=== PATIENT | male | born 1940 | race Caucasian/White ===

== ENCOUNTER → 2016-07-01 | Outpatient (CLI) | payer MEDICARE, OTHER ==
[~2016-07-01] VITALS: Ht 175.3 cm; Wt 128.8 kg
[~2016-07-01] MED LIST: ALBUTEROL0.63 MG/3 INH; ASPIRIN EC81 MG PO; BREO ELLIPTA 11 EACH INH; CALCITRIOL0.5 MCG PO; CATAPRES 0.1MG0.1 MG PO; CITALOPRAM HBR40 MG PO; CLINDAMYCIN HC300 MG PO; COREG 25MG TAB25 MG PO; COSOPT OPTH SOL10 ML OS; EPLERENONE25 MG PO; HYDRALAZINE HCL50 MG PO; LANTUS SOL100 UNIT/1 SQ; LASIX80 MG PO; LIPITOR TAB 2020 MG PO; MEDROL4 MG PO; NEURONTIN 300300 MG PO; NOVOLOG FL100 UNIT/1 SQ; OMNICEF 300 MG300 MG PO; PROTONIX40 MG PO; SYNTHROID 50 M50 MCG PO; TOUJEO SC; VENTOLIN HFA 66.7 GM INH; ZYLOPRIM 100 M100 MG PO
[2016-07-01 11:07] LABS: RED BLOOD COUNT 2.89 M/UL (4.20-5.50); WHITE BLOOD COUNT 8.7 K/UL (4.5-11.0)
== END ==
LOC: OPSV 10:00
PROVIDERS: Internal Medicine Nephrology
DX: N18.4 Chronic kidney disease, stage 4 (severe) (principal); N25.81 Secondary hyperparathyroidism of renal origin
CPT/HCPCS: 36415; 80048; 82728; 83540; 83550; 85027; 96365; 96366; J1756; J7050

== ENCOUNTER 2016-07-08 13:07 | Inpatient (IN) | payer MEDICARE, OTHER ==
[~2016-07-08] VITALS: Ht 175.3 cm; Wt 125.4 kg
[2016-07-08 17:05] LABS: HEMOGLOBIN 7.8 gm/dl (14.0-17.5); RED BLOOD COUNT 2.87 M/UL (4.20-5.50); WHITE BLOOD COUNT 9.2 K/UL (4.5-11.0)
[2016-07-08] MEDS ORDERED: ZYLOPRIM 100 M100 MG PO (18:42)
[2016-07-08] MEDS ORDERED: LIPITOR TAB 2020 MG PO (18:42)
[2016-07-08] MEDS ORDERED: CALCITRIOL0.5 MCG PO (18:43)
[2016-07-08] MEDS ORDERED: CITALOPRAM HBR40 MG PO (18:44)
[2016-07-08] MEDS ORDERED: COREG 25MG TAB25 MG PO (18:44)
[2016-07-08] MEDS ORDERED: CLINDAMYCIN HC300 MG PO (18:45)
[2016-07-08] MEDS ORDERED: CATAPRES 0.1MG0.1 MG PO (18:46)
[2016-07-08] MEDS ORDERED: EPLERENONE25 MG PO (18:46)
[2016-07-08] MEDS ORDERED: LASIX80 MG PO (18:46)
[2016-07-08] MEDS ORDERED: SYNTHROID 50 M50 MCG PO (18:47)
[2016-07-08] MEDS ORDERED: NOVOLOG FL100 UNIT/1 SQ (18:49)
[2016-07-08] MEDS ORDERED: PROTONIX40 MG PO (18:49)
[2016-07-08] MEDS ORDERED: NEURONTIN 300300 MG PO (18:49)
[2016-07-08] MEDS ORDERED: HYDRALAZINE HCL50 MG PO (18:50)
[2016-07-08] MEDS ORDERED: BREO ELLIPTA 11 EACH INH (18:51)
[2016-07-08] MEDS ORDERED: LANTUS SOL100 UNIT/1 SQ (18:53)
[2016-07-08] MEDS ORDERED: ALBUTEROL0.63 MG/3 INH (18:54)
[2016-07-08] MEDS ORDERED: ASPIRIN EC81 MG PO (18:54)
[2016-07-08] MEDS ORDERED: VENTOLIN HFA 66.7 GM INH (18:55)
[2016-07-09 04:26] LABS: HEMOGLOBIN 7.6 gm/dl (14.0-17.5); RED BLOOD COUNT 2.8 M/UL (4.20-5.50); WHITE BLOOD COUNT 7.9 K/UL (4.5-11.0)
[2016-07-09] MEDS ORDERED: TOUJEO SC (07:13)
[2016-07-09] MEDS ORDERED: COSOPT OPTH SOL10 ML OS (16:56)
[2016-07-10 04:53] LABS: HEMOGLOBIN 8.2 gm/dl (14.0-17.5); RED BLOOD COUNT 3.03 M/UL (4.20-5.50)
[2016-07-10] MEDS ORDERED: OMNICEF 300 MG300 MG PO (13:59)
[2016-07-10] MEDS ORDERED: MEDROL4 MG PO (14:01)
== END 2016-07-10 16:05 | disposition home or self-care (01) | DRG 291 ==
LOC: ER1 13:07 → PROG CARE 16:58 → ZEROF 16:58 → PROG CARE 20:23
PROVIDERS: Specialist/Technologist Athletic Trainer; ADMIT Internal Medicine
DX: I13.0 Hypertensive heart and chronic kidney disease with heart failure and stage 1 through stage 4 chronic kidney disease, or unspecified chronic kidney disease (principal); I50.43 Acute on chronic combined systolic (congestive) and diastolic (congestive) heart failure; N18.4 Chronic kidney disease, stage 4 (severe); L03.116 Cellulitis of left lower limb; L03.115 Cellulitis of right lower limb; J45.901 Unspecified asthma with (acute) exacerbation; N17.9 Acute kidney failure, unspecified; N25.81 Secondary hyperparathyroidism of renal origin; J20.9 Acute bronchitis, unspecified; D50.0 Iron deficiency anemia secondary to blood loss (chronic); E11.22 Type 2 diabetes mellitus with diabetic chronic kidney disease; D63.1 Anemia in chronic kidney disease; E11.319 Type 2 diabetes mellitus with unspecified diabetic retinopathy without macular edema; E11.21 Type 2 diabetes mellitus with diabetic nephropathy; E11.40 Type 2 diabetes mellitus with diabetic neuropathy, unspecified; B95.62 Methicillin resistant Staphylococcus aureus infection as the cause of diseases classified elsewhere; H54.62 Unqualified visual loss, left eye, normal vision right eye; Z86.14 Personal history of Methicillin resistant Staphylococcus aureus infection; Z79.4 Long term (current) use of insulin; Z88.0 Allergy status to penicillin; Z88.3 Allergy status to other anti-infective agents; Z88.5 Allergy status to narcotic agent; Z88.8 Allergy status to other drugs, medicaments and biological substances; Z79.82 Long term (current) use of aspirin; Z79.51 Long term (current) use of inhaled steroids; Z79.899 Other long term (current) drug therapy; R06.02 Shortness of breath; I83.93 Asymptomatic varicose veins of bilateral lower extremities
CPT/HCPCS: ECHO; 36415; 36600; 71010; 71020; 80048; 80053; 82272; 82550; 82553; 82728; 82803; 82962; 83540; 83550; 83605; 83874; 83880; 83970; 84484; 85025; 85027; 85610; 85730; 86850; 86900; 86901; 93005; 93306; 94640; 94664; 96374; 96375; 99285; J0696; J1650; J1756; J1940; J2930; J7050

== ENCOUNTER → 2016-07-15 | Outpatient (CLI) | payer MEDICARE, OTHER ==
[~2016-07-15] VITALS: Ht 175.3 cm; Wt 128.8 kg
[2016-07-15 11:47] LABS: HEMOGLOBIN 8.9 gm/dl (14.0-17.5); RED BLOOD COUNT 3.26 M/UL (4.20-5.50); WHITE BLOOD COUNT 12.3 K/UL (4.5-11.0)
== END ==
LOC: OPSV 10:51
PROVIDERS: Internal Medicine Nephrology
DX: N18.4 Chronic kidney disease, stage 4 (severe) (principal); D63.1 Anemia in chronic kidney disease; N25.81 Secondary hyperparathyroidism of renal origin; D64.9 Anemia, unspecified
CPT/HCPCS: 36415; 85027; 96365; 96366; J1756; J7050

== ENCOUNTER → 2016-07-22 | Outpatient (CLI) | payer MEDICARE, OTHER ==
[~2016-07-22] VITALS: Ht 175.3 cm; Wt 128.8 kg
[2016-07-22 11:34] LABS: RED BLOOD COUNT 3.18 M/UL (4.20-5.50); WHITE BLOOD COUNT 8.7 K/UL (4.5-11.0)
== END ==
LOC: OPSV 10:41
PROVIDERS: Internal Medicine Nephrology
DX: N18.4 Chronic kidney disease, stage 4 (severe) (principal); D63.1 Anemia in chronic kidney disease; N25.81 Secondary hyperparathyroidism of renal origin; I83.91 Asymptomatic varicose veins of right lower extremity; I83.92 Asymptomatic varicose veins of left lower extremity
CPT/HCPCS: 36415; 80048; 82728; 83540; 83550; 85027; 96372; J0885

== ENCOUNTER → 2016-07-29 | Outpatient (CLI) | payer MEDICARE, OTHER ==
[~2016-07-29] VITALS: Ht 175.3 cm; Wt 128.8 kg
[2016-07-29 11:36] LABS: HEMOGLOBIN 8.5 gm/dl (14.0-17.5); RED BLOOD COUNT 3.02 M/UL (4.20-5.50); WHITE BLOOD COUNT 6.1 K/UL (4.5-11.0)
== END ==
LOC: OPSV 10:40
PROVIDERS: Internal Medicine Nephrology
DX: N18.4 Chronic kidney disease, stage 4 (severe) (principal); N25.81 Secondary hyperparathyroidism of renal origin
CPT/HCPCS: 36415; 85027; 96372; J0885

== ENCOUNTER → 2016-08-05 | Outpatient (CLI) | payer MEDICARE, OTHER ==
[~2016-08-05] VITALS: Ht 175.3 cm; Wt 128.8 kg
[2016-08-05 11:52] LABS: HEMOGLOBIN 9.1 gm/dl (14.0-17.5); RED BLOOD COUNT 3.15 M/UL (4.20-5.50); WHITE BLOOD COUNT 6.9 K/UL (4.5-11.0)
== END ==
LOC: OPSV 10:40
PROVIDERS: Internal Medicine Nephrology
DX: N18.4 Chronic kidney disease, stage 4 (severe) (principal); N25.81 Secondary hyperparathyroidism of renal origin
CPT/HCPCS: 36415; 85027; Q4081

== ENCOUNTER → 2016-08-12 | Outpatient (CLI) | payer MEDICARE, OTHER ==
[~2016-08-12] VITALS: Ht 205.7 cm; Wt 128.8 kg
[2016-08-12 11:09] LABS: HEMOGLOBIN 8.1 gm/dl (14.0-17.5); RED BLOOD COUNT 2.96 M/UL (4.20-5.50); WHITE BLOOD COUNT 8.2 K/UL (4.5-11.0)
== END ==
LOC: OPSV 10:40
PROVIDERS: Internal Medicine Nephrology
DX: N18.4 Chronic kidney disease, stage 4 (severe) (principal); D63.1 Anemia in chronic kidney disease; N25.81 Secondary hyperparathyroidism of renal origin
CPT/HCPCS: 36415; 85027; 96372; J0885

== ENCOUNTER → 2016-08-19 | Outpatient (CLI) | payer MEDICARE, OTHER ==
[2016-08-19 11:23] LABS: RED BLOOD COUNT 2.98 M/UL (4.20-5.50); WHITE BLOOD COUNT 8.8 K/UL (4.5-11.0)
== END ==
LOC: OPSV 10:49
PROVIDERS: Internal Medicine Nephrology
DX: N18.4 Chronic kidney disease, stage 4 (severe) (principal); D50.9 Iron deficiency anemia, unspecified; I83.90 Asymptomatic varicose veins of unspecified lower extremity
CPT/HCPCS: 36415; 80048; 82728; 83540; 83550; 85027; 96365; 96366; J1756; J7030

== ENCOUNTER → 2016-08-26 | Outpatient (CLI) | payer MEDICARE, OTHER ==
[~2016-08-26] VITALS: Ht 175.3 cm; Wt 128.8 kg
== END ==
LOC: OPSV 10:35
DX: D50.9 Iron deficiency anemia, unspecified (principal)
CPT/HCPCS: 96365; 96366; J1756; J7030

== ENCOUNTER → 2016-09-02 | Outpatient (CLI) | payer MEDICARE, OTHER ==
[~2016-09-02] VITALS: Ht 175.3 cm; Wt 128.8 kg
[2016-09-02 11:11] LABS: HEMOGLOBIN 9.2 gm/dl (14.0-17.5); RED BLOOD COUNT 3.35 M/UL (4.20-5.50); WHITE BLOOD COUNT 8.4 K/UL (4.5-11.0)
== END ==
LOC: OPSV 10:38
PROVIDERS: Internal Medicine Nephrology
DX: N18.4 Chronic kidney disease, stage 4 (severe) (principal); D63.1 Anemia in chronic kidney disease
CPT/HCPCS: 36415; 85027; 96372; J0885

== ENCOUNTER → 2016-09-09 | Outpatient (CLI) | payer MEDICARE, OTHER ==
[2016-09-09 11:03] LABS: HEMOGLOBIN 9.4 gm/dl (14.0-17.5); RED BLOOD COUNT 3.48 M/UL (4.20-5.50); WHITE BLOOD COUNT 8.1 K/UL (4.5-11.0)
== END ==
LOC: OPSV 10:36
PROVIDERS: Internal Medicine Nephrology
DX: N18.4 Chronic kidney disease, stage 4 (severe) (principal); D63.1 Anemia in chronic kidney disease
CPT/HCPCS: 36415; 80048; 82728; 83540; 83550; 85027; 96365; 96366; J1756; J7050

== ENCOUNTER → 2016-09-16 | Outpatient (CLI) | payer MEDICARE, OTHER ==
[~2016-09-16] VITALS: Ht 175.3 cm; Wt 128.8 kg
[2016-09-16 11:15] LABS: HEMOGLOBIN 9.7 gm/dl (14.0-17.5); RED BLOOD COUNT 3.52 M/UL (4.20-5.50); WHITE BLOOD COUNT 8.6 K/UL (4.5-11.0)
== END ==
LOC: OPSV 10:48
PROVIDERS: Internal Medicine Nephrology
DX: N18.4 Chronic kidney disease, stage 4 (severe) (principal); D63.1 Anemia in chronic kidney disease
CPT/HCPCS: 36415; 85027; 96365; 96366; J1756; J7050

== ENCOUNTER → 2016-09-23 | Outpatient (CLI) | payer MEDICARE, OTHER ==
[~2016-09-23] VITALS: Ht 175.3 cm; Wt 58.5 kg
[2016-09-23 11:32] LABS: HEMOGLOBIN 9.8 gm/dl (14.0-17.5); RED BLOOD COUNT 3.57 M/UL (4.20-5.50); WHITE BLOOD COUNT 7.8 K/UL (4.5-11.0)
== END ==
LOC: OPSV 10:34
PROVIDERS: Internal Medicine Nephrology
DX: N18.4 Chronic kidney disease, stage 4 (severe) (principal); D63.1 Anemia in chronic kidney disease; I83.90 Asymptomatic varicose veins of unspecified lower extremity
CPT/HCPCS: 36415; 85027; 96372; G0463; J0885

== ENCOUNTER → 2016-09-30 | Outpatient (CLI) | payer MEDICARE, OTHER ==
[2016-09-30 11:34] LABS: HEMOGLOBIN 9.2 gm/dl (14.0-17.5); RED BLOOD COUNT 3.27 M/UL (4.20-5.50); WHITE BLOOD COUNT 9.4 K/UL (4.5-11.0)
== END ==
LOC: OPSV 10:48
PROVIDERS: Internal Medicine Nephrology
DX: N18.4 Chronic kidney disease, stage 4 (severe) (principal); D63.1 Anemia in chronic kidney disease; H40.52X0 Glaucoma secondary to other eye disorders, left eye, stage unspecified
CPT/HCPCS: 36415; 80048; 82728; 83540; 83550; 85027; 96372; J0885

== ENCOUNTER → 2016-10-05 | Outpatient (CLI) | payer MEDICARE, OTHER ==
[2016-10-05 09:01] LABS: HEMOGLOBIN 8.4 gm/dl (14.0-17.5); RED BLOOD COUNT 2.99 M/UL (4.20-5.50); WHITE BLOOD COUNT 8.1 K/UL (4.5-11.0)
== END ==
LOC: CT 08:18
PROVIDERS: Internal Medicine Nephrology
DX: N18.4 Chronic kidney disease, stage 4 (severe) (principal); D63.1 Anemia in chronic kidney disease; H05.89 Other disorders of orbit; E86.0 Dehydration
CPT/HCPCS: 36415; 70482; 85027; 96360; 96361; 96372; J0885; J7030; J7050; Q4081; Q9966

== ENCOUNTER → 2016-10-14 | Outpatient (CLI) | payer MEDICARE, OTHER ==
[~2016-10-14] VITALS: Ht 175.3 cm; Wt 128.8 kg
[2016-10-14 11:15] LABS: HEMOGLOBIN 7.9 gm/dl (14.0-17.5); RED BLOOD COUNT 2.84 M/UL (4.20-5.50); WHITE BLOOD COUNT 9.2 K/UL (4.5-11.0)
== END ==
LOC: OPSV 10:24
PROVIDERS: Internal Medicine Nephrology
DX: N18.4 Chronic kidney disease, stage 4 (severe) (principal); D63.1 Anemia in chronic kidney disease
CPT/HCPCS: 36415; 85027; 96372; J0885

== ENCOUNTER → 2016-10-21 | Outpatient (CLI) | payer MEDICARE, OTHER ==
[~2016-10-21] VITALS: Ht 175.3 cm; Wt 128.8 kg
[2016-10-21 11:08] LABS: HEMOGLOBIN 7.4 gm/dl (14.0-17.5); RED BLOOD COUNT 2.7 M/UL (4.20-5.50); WHITE BLOOD COUNT 8.9 K/UL (4.5-11.0)
== END ==
LOC: OPSV 10:39
PROVIDERS: Internal Medicine Nephrology
DX: N18.4 Chronic kidney disease, stage 4 (severe) (principal); D50.9 Iron deficiency anemia, unspecified
CPT/HCPCS: 36415; 80048; 82728; 83540; 83550; 85027; 96365; 96366; J1756; J7050

== ENCOUNTER 2016-10-26 16:14 | Emergency (ER) | payer MEDICARE, OTHER ==
[2016-10-26 17:18] LABS: RED BLOOD COUNT 2.52 M/UL (4.20-5.50); WHITE BLOOD COUNT 10.2 K/UL (4.5-11.0)
== END 2016-10-26 21:39 | disposition short-term general hospital (02) ==
LOC: ER1 16:14
PROVIDERS: Emergency Medicine
DX: T82.897A Other specified complication of cardiac prosthetic devices, implants and grafts, initial encounter (principal); D64.9 Anemia, unspecified; I50.9 Heart failure, unspecified; E11.9 Type 2 diabetes mellitus without complications; Z88.0 Allergy status to penicillin; Z79.4 Long term (current) use of insulin; Z79.899 Other long term (current) drug therapy
CPT/HCPCS: 36415; 71010; 80053; 82550; 82553; 82962; 83735; 83874; 83880; 84484; 85025; 85610; 85730; 93005; 96374; 99284; J1940

== ENCOUNTER → 2017-01-13 | Outpatient (CLI) | payer MEDICARE, OTHER ==
[2017-01-13 11:15] LABS: HEMOGLOBIN 11.2 gm/dl (14.0-17.5); RED BLOOD COUNT 3.88 M/UL (4.20-5.50); WHITE BLOOD COUNT 8.3 K/UL (4.5-11.0)
== END ==
LOC: OPSV 10:00
PROVIDERS: Internal Medicine Nephrology
DX: N18.4 Chronic kidney disease, stage 4 (severe) (principal); D50.9 Iron deficiency anemia, unspecified
CPT/HCPCS: 36415; 85027